=== PATIENT | female | born 1950 | race Caucasian/White ===

== ENCOUNTER 2020-07-29 09:41 | Day surgery (SDC) | payer OTHER ==
[2020-07-26 12:19] VITALS: BMI 25.6
[2020-07-29 09:56] VITALS: TEMP 97.3
[2020-07-29 11:39] VITALS: BP 128/71; PULSE 71
== END 2020-07-29 11:25 | disposition home or self-care (01) ==
LOC: FASU-ENDO 09:41
PROVIDERS: ATTEND Internal Medicine Gastroenterology
PROC: 0DB78ZX Excision of Stomach, Pylorus, Via Natural or Artificial Opening Endoscopic, Diagnostic (ICD-10-PCS; 2020-07-29)
PROC: 0DB58ZX Excision of Esophagus, Via Natural or Artificial Opening Endoscopic, Diagnostic (ICD-10-PCS; 2020-07-29)
PROC: 0DB98ZX Excision of Duodenum, Via Natural or Artificial Opening Endoscopic, Diagnostic (ICD-10-PCS; principal; 2020-07-29 10:29)
DX: K22.70 Barrett's esophagus without dysplasia (principal); K29.00 Acute gastritis without bleeding; K31.7 Polyp of stomach and duodenum; K44.9 Diaphragmatic hernia without obstruction or gangrene
CPT/HCPCS: 88305-TC; 88342-TC

== ENCOUNTER 2021-09-01 09:52 | Day surgery (SDC) | payer OTHER ==
[2021-08-26 11:07] VITALS: BMI 25.4
[2021-09-01 12:15] VITALS: BP 148/80; PULSE 67; TEMP 97.9
== END 2021-09-01 12:33 | disposition home or self-care (01) ==
LOC: FASU-ENDO 09:52
PROVIDERS: ATTEND Internal Medicine Gastroenterology
PROC: 0DB68ZX Excision of Stomach, Via Natural or Artificial Opening Endoscopic, Diagnostic (ICD-10-PCS; 2021-09-01)
PROC: 0DB38ZX Excision of Lower Esophagus, Via Natural or Artificial Opening Endoscopic, Diagnostic (ICD-10-PCS; 2021-09-01)
PROC: 0DB98ZX Excision of Duodenum, Via Natural or Artificial Opening Endoscopic, Diagnostic (ICD-10-PCS; principal; 2021-09-01 11:31)
DX: K29.50 Unspecified chronic gastritis without bleeding (principal); K31.7 Polyp of stomach and duodenum; K22.70 Barrett's esophagus without dysplasia; K44.9 Diaphragmatic hernia without obstruction or gangrene; R12 Heartburn
CPT/HCPCS: 88305-TC; 88342-TC